=== PATIENT | female | born 1985 | race Caucasian/White ===

== ENCOUNTER 2017-10-24 07:30 | Outpatient (CLI) | payer SELFPAY ==
[2017-10-24 07:40] VITALS: BP 120/59
[2017-10-24] MEDS ORDERED: LR(*) 1000 ML BAG 1,000 ML IV PRN (08:20)
== END 2017-10-24 11:30 | disposition home or self-care (01) ==
LOC: OB 07:30 → L&D 07:30 → UNDOADMIN 07:30 → UNDODISIN 10:30 → L&D 11:30 → EDSTATUS 12:09
PROVIDERS: ATTEND Obstetrics & Gynecology
DX: O26.893 Other specified pregnancy related conditions, third trimester (principal); Z3A.30 30 weeks gestation of pregnancy
CPT/HCPCS: 81001; 99213; J7120

== ENCOUNTER 2017-12-04 14:43 | Outpatient (CLI) | payer MEDICAID ==
[~2017-12-04] VITALS: Ht 160 cm; Wt 76.7 kg
[2017-12-04 15:00] VITALS: BP 101/57; Ht 160 cm; Wt 76.7 kg
[2017-12-04] MEDS ORDERED: PREN-127 PO (16:02)
[2017-12-04] MEDS ORDERED: CALC-515 PO (16:02)
[2017-12-04] MEDS ORDERED: FAMO20TA28 PO (16:02)
[2017-12-04] MEDS ORDERED: TERBUTALINE SULF 1 MG/ML VIAL SC SCH (16:25)
[2017-12-04] MEDS ORDERED: LR(*) 1000 ML BAG 1,000 ML IV PRN (16:25)
[2017-12-04] MEDS ORDERED: NIFEdipine 10 MG CAP PO ONE (16:25)
[2017-12-04] MEDS ORDERED: TERBUTALINE SULF 1 MG/ML VIAL ONE (16:36)
[2017-12-04] MEDS ORDERED: BETAMETHASONE/ACETATE 6 MG/1ML IM SCH (17:00)
[2017-12-04] MEDS ORDERED: ACETAMINOPHEN 325 MG TAB PO PRN (17:10)
[2017-12-04] MEDS ORDERED: ACETAMINOPHEN 325 MG TAB ONE (17:21)
[2017-12-04 17:24] LABS: PLATELET COUNT, AUTOMATED 191 K/uL (150-450)
--- NOTE | 2017-12-04 18:25 | History & Physical ---
History of Present Illness Age of Patient: 32 : 3 Para or TPAL: 2 EDC per LMP: Jan 04, 2018 Estimated Gestational Age: 35.4 Chief Complaint Contractions History of Present Illness Presents with contractions. Was seen in office today and was 4 cm dilated. Pt went home and began to have regular painful contractions. No LOF or vaginal bleeding. Past Medical, Surgical, Family and Obstetric Histories reviewed. Please see ACOG chart. History Allergies: Uncoded Allergies: anethesia medications (Adverse Reaction, Unknown, 10/24/17) Med Rec Home Meds Reported Medications Calcium Carbonate (TUMS) 200 Mg Tab.chew, 200 MG PO, TAB.CHEW 12/04/17 Famotidine (PEPCID) 20 Mg Tablet, 20 MG PO BID, #10 TAB 12/04/17 Vits W-Ca,Fe,Fa(<1MG) ( VITAMINS) 1 Each Tablet, 1 EACH PO DAILY, TAB 12/04/17 Review of Systems All Systems Reviewed/Normal: Yes, Except as Noted Exam General Exam Vital Signs Vital Signs Date Time Temp Pulse Resp B/P (MAP) Pulse Ox O2 Delivery O2 Flow Rate FiO2 12/04/17 15:00 99.0 111 16 101/57 (72) 94 Room Air General Apperance: Alert/Awake/No Acute Distress Neuro: No Gross deficits Cardiovascular: Regular Rate and Rhythm Respiratory: No Respiratory Distress Abdomen: Soft, Non-Tender, Non-Distended, Gravid - Non-Tender Psychological: Alert & Oriented X3, Appropriate Mood & Affect Cervical Dialation: 4 Cervical Effacement (%): 80 Cervical Consistency: Soft Presentation: Vertex Fetus Heart Tone Variabilty: Moderate FHT Accelerations: 15X15 FHT Category: I Medical Decision Making Data Points Result Diagram: 12/04/17 3189 VTE Prophylasis: Adult Deep Vein Thrombosis/Pulmonary: No Pharmacological Contraindicati: Pt at Low Risk for VTE Mechanical Contraindications: Pt at Low Risk for VTE 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 Feeling much better and wants to go home. Betamethasone administered here. PTL precautions explained. She has appt on Sunday. Will get the second dose tomorrow. Problem Qualifiers (1) Threatened labor: Trimester: third trimester Qualified Codes: O47.03 - False labor before 37 completed weeks of gestation, third trimester MECHE DIAZ MD Dec 04, 2017 18:25
--- NOTE | 2017-12-04 18:26 | Short(Outpt) Discharge Summary ---
Discharge Summary Reason for Hosp/Final Diag: (1) Threatened labor Hospital Course & Plan: Received 1L IVFs bolus and terb + nifedipine 20 mg and contractions have stopped. Feeling much better and wants to go home. Betamethasone administered here. PTL precautions explained. She has appt on Sunday. Will get the second dose tomorrow. Departure Discharge to: Home, Self Care Discharge Instructions Home Meds Reported Medications Calcium Carbonate (TUMS) 200 Mg Tab.chew, 200 MG PO, TAB.CHEW 12/04/17 Famotidine (PEPCID) 20 Mg Tablet, 20 MG PO BID, #10 TAB 12/04/17 Vits W-Ca,Fe,Fa(<1MG) ( VITAMINS) 1 Each Tablet, 1 EACH PO DAILY, TAB 12/04/17 Follow up Referrals: SEAMAN OFFICER @ [facility] with MECHE DIAZ MD RETURN TO REGULARLY SCHEDULED APPOINTMENT. Diet: Regular Activity: As Tolerated Special Instructions: Complete betamethsone tomorrow Copies to: MECHE DIAZ MD ; Problem Qualifiers (1) Threatened labor: Trimester: third trimester Qualified Codes: O47.03 - False labor before 37 completed weeks of gestation, third trimester MECHE DIAZ MD Dec 04, 2017 18:26
[2017-12-04] MEDS ORDERED: NIF10 PO (18:40)
[2017-12-04] MEDS ORDERED: NIFEdipine 10 MG CAP PO SCH (21:00)
[2017-12-05] MEDS ORDERED: TERBUTALINE SULF 1 MG/ML VIAL SC SCH (16:25)
== END 2017-12-04 18:56 | disposition home or self-care (01) ==
LOC: OB 14:43 → L&D 14:43 → OB 14:43 → UNDOADMIN 14:43 → L&D 18:56 → UNDODISIN 18:56 → EDSTATUS 12-05 15:46
PROVIDERS: ATTEND Obstetrics & Gynecology
DX: O47.03 False labor before 37 completed weeks of gestation, third trimester (principal); Z3A.35 35 weeks gestation of pregnancy
CPT/HCPCS: 36415; 59025; 80305; 81001; 84112; 85025; 86703; G0463; J0702; J3105; J7120; 99213

== ENCOUNTER 2017-12-19 19:47 | Outpatient (CLI) | payer MEDICAID ==
[~2017-12-19] VITALS: Ht 165.1 cm; Wt 74.8 kg
[~2017-12-19 19:47] MED LIST: CALC-515 PO; FAMO20TA28 PO; NIF10 PO; PREN-127 PO
[2017-12-19] MEDS ORDERED: LR(*) 1000 ML BAG 1,000 ML IV PRN (19:49)
[2017-12-19] MEDS ORDERED: ACETAMINOPHEN 500 MG TAB PO ONE (20:50)
[2017-12-19 21:50] VITALS: BP 115/68; Ht 165.1 cm; Wt 74.8 kg
== END 2017-12-19 22:02 | disposition home or self-care (01) ==
LOC: OB 19:47 → UNDOADMOB 19:47 → OB 19:47 → L&D 19:47 → UNDODISOB 21:33 → L&D 22:02 → EDSTATUS 12-21 11:04
PROVIDERS: ATTEND Student in an Organized Health Care Education/Training Program
DX: O26.893 Other specified pregnancy related conditions, third trimester (principal); Z3A.37 37 weeks gestation of pregnancy
CPT/HCPCS: 59025; 81001; G0463; 99213; G0378; G0379

== ENCOUNTER 2017-12-28 05:15 | Inpatient (IN) | payer MEDICAID ==
[~2017-12-28] VITALS: Ht 162.6 cm; Wt 74.8 kg
[2017-12-28] VITALS (7 sets, daily range): BP systolic 113–130; BP diastolic 60–77; Ht 162.6 cm; Wt 74.8 kg
[2017-12-28] MEDS ORDERED: fentaNYL CITR 100 MCG/2 ML AMP IVP PRN (05:30)
[2017-12-28] MEDS ORDERED: OXYTOCIN 30 UNIT/D5LR 500 ML 500 ML IV PRN ×2 (05:30)
[2017-12-28] MEDS ORDERED: LIDOCAINE 1% LOCAL 300 MG/30ML INJ PRN (05:30)
[2017-12-28] MEDS ORDERED: LR(*) 1000 ML BAG 1,000 ML IV PRN (05:30)
[2017-12-28] MEDS ORDERED: FAMOTIDINE(*) 20MG/50ML PREMIX 50 ML IVPB PRN ×2 (05:30→15:41)
[2017-12-28] MEDS ORDERED: TERBUTALINE SULF 1 MG/ML VIAL SUBQ PRN (05:30)
[2017-12-28] MEDS ORDERED: METOCLOPRAMIDE 10 MG/2 ML SDV IVP PRN ×3 (05:30→15:50)
[2017-12-28] MEDS ORDERED: FLUSH 10 ML SYR IVP PRN (05:30)
[2017-12-28] MEDS ORDERED: LIDOCAINE/SOD BICARB 8.4% SYR SC PRN (05:30)
[2017-12-28] MEDS ORDERED: DLR(*) 1000 ML BAG 1,000 ML IV SCH (05:30)
[2017-12-28] MEDS ORDERED: cefOXitin/DEX(*) 2GM/50ML PREM 50 ML IVPB PRN (05:30)
[2017-12-28] MEDS ORDERED: ACET-1966 PO (05:56)
[2017-12-28 06:15] LABS: PLATELET COUNT, AUTOMATED 221 K/uL (150-450)
[2017-12-28] MEDS ORDERED: LIDOCAINE/PF 2% 200MG/10ML AMP 200 MG/10 ML AMPUL EPI PRN (08:00)
[2017-12-28] MEDS ORDERED: fentaNYL CITR 100 MCG/2 ML AMP IT PRN (08:00)
[2017-12-28] MEDS ORDERED: BUPIVACAINE 0.5% INJ 30ML VIAL EPI PRN (08:00)
[2017-12-28] MEDS ORDERED: EPIDURAL KEYS XX PRN (08:00)
[2017-12-28] MEDS ORDERED: BUPIVACAINE 0.25% MPF INJ EPI PRN (08:00)
[2017-12-28] MEDS ORDERED: LIDO/EPI 2% MPF 1:200,000 20ML EPI PRN (08:00)
[2017-12-28] MEDS ORDERED: FENTANYL/ROPIVACAINE 100 ML BAG EPI PRN (08:00)
[2017-12-28] MEDS ORDERED: ONDANSETRON 4 MG/2 ML VIAL IVP PRN (10:35)
[2017-12-28] MEDS ORDERED: ONDANSETRON 4 MG/2 ML VIAL ONE ×2 (10:38→18:26)
--- NOTE | 2017-12-28 10:49 | Anesthesia OB Pre-Anes Eval ---
History of Present Illness Anesthesia Start Date: Dec 28, 2017 Anesthesia Start Time: 08:40 OB Anesthesia Diagnosis: induction - elective Complications: None known EDC: Jan 04, 2018 : 3 Para: 2 Vital Signs: Vital Signs Date Time Temp Pulse Resp B/P (MAP) Pulse Ox O2 Delivery O2 Flow Rate FiO2 12/28/17 05:58 98.0 103 20 114/77 (89) Pain Ratin Heart Tones: WNL Result Diagram: 12/28/17 0608 Height (Inches): 64.00 Weight (Pounds): 165 BMI Calculated: 28.32 Past Medical History Medical History: other (Pt. states her "heart stopped during surgery") Surgical History: cholecystectomy Previous Anesthesia: general, epidural Attended Childbirth Classes?: No Hx Anesthesia Reactions: No Hx Family Anesthesia Reaction: No Current Medications: pitocin Home Meds Active Scripts Nifedipine (NIFEDIPINE) 10 Mg Cap, 20 MG PO Q6H PRN for CONTRACTIONS, #30 CAP 1 Refill Prov:MECHE DIAZ MD 12/04/17 Reported Medications Acetaminophen (TYLENOL) 325 Mg Tablet, 325 MG PO, TAB 12/28/17 Calcium Carbonate (TUMS) 200 Mg Tab.chew, 200 MG PO, TAB.CHEW 12/04/17 Famotidine (PEPCID) 20 Mg Tablet, 20 MG PO BID, #10 TAB 12/04/17 Vits W-Ca,Fe,Fa(<1MG) ( VITAMINS) 1 Each Tablet, 1 EACH PO DAILY, TAB 12/04/17 Allergies: Uncoded Allergies: anethesia medications (Adverse Reaction, Severe, 12/28/17) Pt states that she "flat lined and " during general anesthesia. Anesthesia OB ROS Neurological: No migraines/headaches, No seizures, No neuropathy ENT: Denies Tooth caps, Denies Loose teeth, Denies Chipped teeth, Denies Dentures, Denies Bridges, Denies Retainers, Denies Veneers, Denies Implants, Denies Tongue ring Pulmonary: smoker (pks/day/yrs) (admitts to 1 ppd (for 12 yrs)) Airway Class: ll Cardiovascular ROS: No edema, No arrhythmia GI ROS: clear liquids Last Solids Date: Dec 27, 2017 Last Solids Time: 20:00 ROS: No Herpes, No STD(s), No Liver Disease, No Renal Disease Endocrine ROS: No diabetes, No gestational diabetes, No thyroid disorder Musculoskeletal ROS: No low back pain, No low back injury, No scoliosis; other (HS of difficulty with placement of epidural and had blood patch after last LEB) ASA Classification: 2, 3 Assessment and Plan Anesthesia Plan: CSE Assessment Due to pt's history of difficulty with epidural placement, PDPHA and blood patch, pt is agreeable to early placement of epidural. Plan: for AROM after placement. General anesthesia risks and benefits explained to patient's satisfaction.Epidural anesthesia risks, complications and benefits explained to patient's satisfaction for labor and vaginal delivery and/or section. Questions invited, none asked. NILDA HARRELL CRNA Dec 28, 2017 10:49
--- NOTE | 2017-12-28 11:00 | Procedure Note ---
Anesthetic Placement Note Anesthesia Plan: CSE Permit for Anesthesia Signed: Yes Anesthesia Technique: Patient Sitting Anesthesia Prep: Chlorhexidine Interspace: L 3-4 Local Anesthetic: 1% Lidocaine, 25 Gauge Needle Amount Local - cc's: 2 Anesthesia Needle: 17g Touhy/Schliff Anesthesia Attempts: 1 Loss of Resistance: Air Depth of ADRIAN (cm): 5 Epidural Needle Placement: No CSF, No Blood, No Parasthesia Intrathecal Needle: 27 Gauge Pencan Cerebral Spinal Fluid: Yes, Clear Catheter Insertion (cm): 8 Catheter Type: Ryan - Spring Wound Epidural Dressing: Tegaderm, Tape, Adhesive Gibbon Anesthesia Tray: Lot Number ([id number]), Expiration Date (2018-12-02), Reference Number ([id number]) Anesthesia Medications: Intrathecal Dose: mcg Fentanyl (10), mg Marcaine MPF (1.75), Time (906) Epidural Test Dose: 1.5 Lido/Epi (1:200,000), Dose - mL (2), Time (925), Negative Epidural Loading Dose: 0.2% Ropivicaine, With Fentanyl 2mcg/ml, Dose - ml (4), Time (927) Epidural Infusion: 0.2% Ropivicaine, With Fentanyl 2mcg/ml, Start Time: (927) Epidural Pump Setting: Bolus Dose - mL (4), Lockout - Minutes (20), Maintenance Rate - mL/hr (4), Maximum per Hour - mL (16) Complications: None Comment: Accura ultra sound used with placement. No problems noted with placement of CSE. Pt. tolerated procedure very well. No signs of any dura puncture. NILDA HARRELL CRNA Dec 28, 2017 11:00
--- NOTE | 2017-12-28 11:06 | Anesthesia Progress Note ---
Progress/Maintenance Anesthesia Note Date: Dec 28, 2017 Anesthesia Note Time: 11:00 Pain Intensity: 4 Pump: On Pump Rate (ML/HR): 4 Sensory Level: T-12 Motor Level: Bending Knees-Bilateral Dilatation: 6 Position: Right, Tilt Assessment and Plan Assessment Pt. states that her legs are heavy, is moving both. Rates her contractions as "4". Unable to notice any facial or physical movements with contractions. NILDA HARRELL CRNA Dec 28, 2017 11:06
--- NOTE | 2017-12-28 12:40 | Anesthesia Progress Note ---
Progress/Maintenance Anesthesia Note Date: Dec 28, 2017 Anesthesia Note Time: 12:30 Pain Intensity: 4 Pump: On Pump Rate (ML/HR): 4 Sensory Level: T-12 Motor Level: Bending Knees-Bilateral, Other (Both legs heavy, but can move them) Dilatation: 8 Position: Right, Tilt Drug Bolus: 0.5% Marcaine (4ml), Other (Fentenyl 85 mcgs) Assessment and Plan Assessment Called by RN that Pt. is requesting medication for "pressure". AROM and dilated to 8 cms. Bolus per pump and Fentenyl given. Improvement noted within 5-8 minutes, but pt. remains very restless and continues to feel "pressure". Manual bolus of 4 ml 0.5% Marcaine plain. Encouraged to relax. NILDA HARRELL CRNA Dec 28, 2017 12:40
[2017-12-28] MEDS ORDERED: METHYLERGONOVINE MAL 0.2MG/ML ONE (13:29)
[2017-12-28] MEDS ORDERED: CARBOPROST TROMETHAM 250MCG/ML IM ONLY ONE (13:29)
--- NOTE | 2017-12-28 13:57 | Anesthesia Progress Note ---
Progress/Maintenance Anesthesia Note Date: Dec 28, 2017 Anesthesia Note Time: 13:45 Pain Intensity: 4 Pump: On Pump Rate (ML/HR): 4 Sensory Level: T-12 Motor Level: Bending Knees-Bilateral, Other (both legs heavy but can move) Dilatation: 9 Position: Right, Tilt Drug Bolus: 0.2% Ropivicaine, 0.5% Marcaine (4 ml), Fentanyl 2mcg/ml Assessment and Plan Assessment bolus per pump given as well as 4 ml 0.5% Marcaine plain. Pt. verbal with feeling of "pressure". Pt. slow to verbally respond when questioned about comfort level. NILDA HRARELL CRNA Dec 28, 2017 13:57
--- NOTE | 2017-12-28 14:17 | Anesthesia Progress Note ---
Progress/Maintenance Anesthesia Note Date: Dec 28, 2017 Anesthesia Note Time: 14:15 Pain Intensity: 4 Pump: On Pump Rate (ML/HR): 4 Sensory Level: T-10 Motor Level: Other (assistance required to move both legs) Dilatation: 9 Position: Left, Tilt Drug Bolus: Other (Fentenyl 50 mcgs) Assessment and Plan Assessment Pt. continues to be very vocal with first 5 seconds of a contraction. States she feels "pressure and want to push". NILDA HARRELL CRNA Dec 28, 2017 14:17
[2017-12-28] MEDS ORDERED: ACETAMINOPHEN 325 MG TAB PO PRN (15:25)
[2017-12-28] MEDS ORDERED: GLYCERIN/WITCH HAZEL LEAF 1 PK TP PRN (15:25)
[2017-12-28] MEDS ORDERED: APAP/HYDROCODONE 325/5 TAB PO PRN (15:25)
[2017-12-28] MEDS ORDERED: LANOLIN OINT 7 GM TUBE TP PRN (15:25)
[2017-12-28] MEDS ORDERED: HYDROCORTISONE 2.5% CR 30GM TB PR PRN (15:25)
[2017-12-28] MEDS ORDERED: MAGNESIUM HYDROXIDE* 30ML UDCP PO PRN (15:25)
--- NOTE | 2017-12-28 15:34 | OB Delivery Note ---
Delivery Note Vaginal Delivery Type: Spont. Vaginal Delivery Delivery Date: Dec 28, 2017 Delivery Time: 15:29 Estimated Gestational Age(wks): 39 Delivery Anesthesia: Epidural Sex: Male [place] Apgars: 1 Minute (8), 5 Minute (8) Baby B Weight (gms): 3592 Repair Needed: Vaginal, 1st Degree Estimated Blood Loss: 200 Notes: Admitted for labor induction at 4 cm dilation and 39 weeks. Pitocin induction and progressed regularly to 7 cm by 1130. Issues with tachysystole for a period and eventually progressed to 9 cm by 1252. Completely dilated at 1446. Pushing effectively in MYRIAM position, baby delivered over first degree laceration. Shoulders delivered with gentle manipulation downward while a push effected delivery of the baby. No complications. Repair with 2-0 Chromic without complication. Log Check Scaler in Attendence: No Copies to: MECHE DIAZ MD ; MECHE DIAZ MD Dec 28, 2017 15:34
[2017-12-28] MEDS ORDERED: NORMOSOL R SOLN(*) 1000 ML BAG 1,000 ML IV PRN (15:45)
--- NOTE | 2017-12-28 16:04 | Anesthesia Progress Note ---
Progress/Maintenance Anesthesia Note Date: Dec 28, 2017 Anesthesia Note Time: 15:20 Pain Intensity: 0 Pump: Off Sensory Level: T-10 Motor Level: Other (Both legs heavy) Dilatation: 10 Position: Semi-Fowlers Assessment and Plan Assessment No further medications were given. Although pt. continued to be very verbal, she was able to push, had excellent tolerance of delivery and 1st degree repair. Epidural pump off and empty syringe attached to epidural catheter. Patient instructed the first ambulation is to be with help of nursing staff. Instructed to preform deep knee bends at bedside before walking. 1ml Fentenyl remains and will pass along to Dr. Ng for PPTL Anesthesia Stop Day: Dec 28, 2017 Anesthesia Stop Time: 15:20 NILDA HARRELL CRNA Dec 28, 2017 16:04
[2017-12-28] MEDS: BENZOCAINE 20% 60 ML BTL TP PRN (16:25)
[2017-12-28] MEDS ORDERED: LIDO/EPI 2% MPF 1:200,000 20ML ONE ×2 (16:37→17:22)
[2017-12-28] MEDS: IBUPROFEN 800 MG TAB PO SCH (16:44)
[2017-12-28] MEDS ORDERED: fentaNYL CITR 100 MCG/2 ML AMP ONE ×2 (17:07→18:55)
[2017-12-28] MEDS ORDERED: MIDAZOLAM 2 MG/2 ML VIAL ONE (17:08)
[2017-12-28] MEDS ORDERED: ROPIVACAINE 0.2% 20 ML VIAL ONE (17:16)
--- NOTE | 2017-12-28 17:27 | Anesthesia Progress Note ---
Progress/Maintenance Anesthesia Note Date: Dec 28, 2017 Anesthesia Note Time: 16:55 Pain Intensity: 0 Pump: Off Anesthesia Treatment: Epidural dosed with 2% Lidocaine 15ml total in 5ml increments and Fentanyl Report Received From: Rashmi Payton CRNA Care Assumed By: Other (Devin Pete CRNA) Time Care Assumed: 16:30 Assessment and Plan Assessment: Epidural dosed for upcoming Tubal Ligation down in main OR. 1715 pt reports approximately T-8 sensory level Anesthesia Stop Day: Dec 28, 2017 Anesthesia Stop Time: 17:25 Epidural Catheter Removal: Removed by: (Catheter will be removed in OR following tubal ligation.) SABA PETE CRNA Dec 28, 2017 17:27
[2017-12-28] MEDS ORDERED: SUGAMMADEX SOD 500 MG/5 ML SDV ONE (18:25)
--- NOTE | 2017-12-28 18:42 | Post Operative Note ---
Operative Note - SIGN HANGER Operative Day Date: Dec 28, 2017 Time: 18:41 Physicians Surgeon: Rocio Anesthesia: GETA Diagnosis Pre-Op Diagnosis: sterilization Post-Op Diagnosis: same Procedure Procedure(s): PPTL Complications: none Fluids Fluids: iv crystalloid Estimated Blood Loss: minmal Dictated Date OP Note Dictated: Dec 28, 2017 Time OP Note Dictated: 18:41 Copies to: MECHE DIAZ MD ; MECHE DIAZ MD Dec 28, 2017 18:42
--- NOTE | 2017-12-28 20:02 | OPERATIVE REPORT 1 ---
EVENT DATE: December 28, 2017 SURGEON: Damien Chan MD ANESTHESIOLOGIST: Marciano Ng MD ANESTHESIA: General and regional. PREOPERATIVE DIAGNOSES 1. status post vaginal delivery. 2. Desired sterilization. POSTOPERATIVE DIAGNOSES 1. status post vaginal delivery. 2. Desired sterilization. PROCEDURE PERFORMED tubal sterilization via modified [place] method. ESTIMATED BLOOD LOSS Minimal. FLUIDS IV crystalloid. PROCEDURE IN DETAIL The patient was brought to the operating room with an epidural in place, working IV, and administered surgical doses. She was then prepped and draped in the usual sterile fashion. The umbilicus was infiltrated with 0.2% Naropin. A curvilinear incision beneath the umbilicus was made with a scalpel and carried through to the intra-abdominal space through the peritoneum. The patient was excessively uncomfortable through this portion of the procedure; therefore, the procedure was put on pause while Dr. Ng placed her under general endotracheal anesthesia. Once this was secured, we proceeded again with the case by rolling the patient to the right, packing away bowel and omentum with a moist laparotomy sponge, manipulating the uterus to bring the right tube into view. The isthmic portion of the tube was grasped and elevated while a knuckle of tube was created with a plain gut tie. It was doubly ligated, and then a 2 cm segment of tube was excised. The same procedure was followed on the contralateral side in a likewise fashion following the tube to the fimbriated end, verifying the tube, grasping it in the isthmic portion, and excising a 2 cm segment of tube. This was sent to Pathology. All sites were hemostatic; therefore, the incision was repaired with an 0 Vicryl through the fascia and peritoneum in a running nonlocking stitch. The subcuticular space was closed with a 3-0 Vicryl, and the skin incision was repaired with 4-0 Monocryl simple subdermal and covered with Dermabond skin adhesive. She tolerated the procedure well. Sponge, lap, needle, and instrument counts were all correct times three. [facility]
[2017-12-28] MEDS: DOCUSATE CALCIUM 240 MG CAP PO SCH (21:08)
[2017-12-28] MEDS: NICOTINE 14 MG/24 HR PATCH TD SCH (22:42)
[2017-12-28] MEDS ORDERED: BENZONATATE 100 MG CAP PO PRN (23:55)
[2017-12-29] MEDS: IBUPROFEN 800 MG TAB PO SCH ×3 (01:20→16:25)
[2017-12-29 04:55] VITALS: BP 112/66
[2017-12-29 08:19] VITALS: BP 101/62
[2017-12-29] MEDS: APAP/HYDROCODONE 325/7.5 TAB PO PRN ×2 (08:22→11:51)
[2017-12-29] MEDS ORDERED: DIPHTH/TETANUS/ACEL. PERTUSSIS IM ONLY ONE (09:00)
[2017-12-29] MEDS ORDERED: MEASLES,MUMP,RUBELLA VAC 0.5ML SUBQ ONE (09:00)
[2017-12-29] MEDS: NICOTINE 14 MG/24 HR PATCH TD SCH (09:00)
[2017-12-29] MEDS ORDERED: INFLUENZA VIRUS VAC 0.5ML SYR IM ONLY ONE (09:00)
[2017-12-29] MEDS: DOCUSATE CALCIUM 240 MG CAP PO SCH (09:27)
--- NOTE | 2017-12-29 12:28 | OB/GYN Progress Note ---
OB Subjective Progress Notes Subjective Doing well. Some shoulder pain at times and incisional pain but tolerable. Tolerating pain medication well. Ambulating and voiding well. GI: NEG Nausea : Voiding Well Pain: Mild OB Objective Physical Exam Vital Signs Date Time Temp Pulse Resp B/P (MAP) Pulse Ox O2 Delivery O2 Flow Rate FiO2 12/29/17 08:19 97.8 70 18 101/62 (75) 94 Room Air 12/29/17 01:40 1.0 Intake and Output 12/29/17 07:00 Intake Total 2590 ml Output Total 850 ml Balance 1740 ml Intake Oral 240 ml IV Total 2350 ml Output Urine Total 850 ml General Appearance: Alert/Awake/No Acute Distress Neurological: No Gross deficits Cardiovascular: Normal Rhythm & Peripheral Pulses Respiratory: No Respiratory Distress Abdomen: Soft, Non-Tender, Non-Distended Incision: Clean, Dry, Intact, Dermabond Integumentary: Skin Intact without Lesions or Rash Psychological: Alert & Oriented X3, Appropriate Mood & Affect Result Diagram: 12/29/17 0722 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 Home today. F/u at 2 weeks for incision check. (2) care and examination immediately after delivery Assessment & Plan: f/u at 6 weeks. MECHE DIAZ MD Dec 29, 2017 12:28
[2017-12-29] MEDS ORDERED: IBUP800T37 PO (12:30)
[2017-12-29] MEDS ORDERED: Acetaminophen/Hydrocodone PO (12:30)
--- NOTE | 2017-12-29 12:32 | OB/GYN Discharge Summary ---
Discharge Summary Reason for Hosp/Final Diag: (1) Postoperative state Hospital Course & Plan: Stable and doing well. Home today. F/u at 2 weeks for incision check. (2) care and examination immediately after delivery Hospital Course & Plan: f/u at 6 weeks. [place] Vital Signs Vital Signs Date Time Temp Pulse Resp B/P (MAP) Pulse Ox O2 Delivery O2 Flow Rate FiO2 12/29/17 08:19 97.8 70 18 101/62 (75) 94 Room Air 12/29/17 01:40 1.0 Weight (Pounds): 165 Result Diagram: 12/29/17 0722 Condition: Improved Discharge: Home, Self Correction Meds Active Scripts [Apap/Hydrocodone 325/7.5 Tab] 7.5 MG/325 MG TAB No Conflict Check, 1-2 EACH PO Q4-6H PRN for PAIN, #20 TAB 0 Refills Prov:MECHE CHAN MD 12/29/17 Nifedipine (NIFEDIPINE) 10 Mg Cap, 20 MG PO Q6H PRN for CONTRACTIONS, #30 CAP 1 Refill Prov:MECHE CHAN MD 12/04/17 Reported Medications Acetaminophen (TYLENOL) 325 Mg Tablet, 325 MG PO, TAB 12/28/17 Calcium Carbonate (TUMS) 200 Mg Tab.chew, 200 MG PO, TAB.CHEW 12/04/17 Famotidine (PEPCID) 20 Mg Tablet, 20 MG PO BID, #10 TAB 12/04/17 Vits W-Ca,Fe,Fa(<1MG) ( VITAMINS) 1 Each Tablet, 1 EACH PO DAILY, TAB 12/04/17 Follow up Referrals: BIOMECHANICAL ENGINEER - In Two Weeks @ [facility] with MECHE CHAN MD Follow up with: Dr. Chan [phone] Follow up in: 6 wks PP or PO Discharge Diet: As Tolerates Discharge Activity: As Tolerates, No Heavy Lifting x 6 wks, No Heavy Lifting > 10lb, Pelvic Rest Copies to: MECHE CHAN MD ; MECHE CHAN MD Dec 29, 2017 12:32
[2017-12-29 12:40] VITALS: BP 96/53
--- NOTE | 2017-12-29 14:29 | Anesthesia Post Eval Note ---
Anesthesia Post Eval Note Stabil, afebrile. Pt able to participate in Eval: Yes Cardiovascular Status: Satisfactory Respiratory Status: Satisfactory Pain Managment: Satisfactory PO Nausea/Vomiting: Satisfactory Temperature Management: Satisfactory Mental Status: Satisfactory, Alert, Oriented X3 Post-Op Hydration Status: Satisfactory, Tolerating PO Well, Voiding w/o Difficulty Anesthesia Type: CSE Anesthesia Tolerance: Ambulatory without symptoms of PDPH. Labor epidural was dosed for surgery following uneventful vaginal delivery. Pt. transported down to main OR by surgical staff. She reports that she still had sensation in abdomen and anesthesia provider had to do GETA to finish the procedure (PPBTL) despite inability to move lower extremities before departing for OR. Refer to surgical anesthesia record for further details. SABA PETE CRNA Dec 29, 2017 14:28
[2017-12-29] MEDS: BENZOCAINE 20% 60 ML BTL TP PRN (16:35)
== END 2017-12-29 16:46 | disposition home or self-care (01) | DRG 798 ==
LOC: OB 05:15
PROVIDERS: ADMIT Obstetrics & Gynecology; ATTEND Obstetrics & Gynecology
PROC: 0UB70ZZ Excision of Bilateral Fallopian Tubes, Open Approach (ICD-10-PCS; 2017-12-28)
PROC: 0HQ9XZZ Repair Perineum Skin, External Approach (ICD-10-PCS; 2017-12-28)
PROC: 3E033VJ Introduction of Other Hormone into Peripheral Vein, Percutaneous Approach (ICD-10-PCS; 2017-12-28)
PROC: 10E0XZZ Delivery of Products of Conception, External Approach (ICD-10-PCS; principal; 2017-12-28 17:45)
DX: O62.8 Other abnormalities of forces of labor (principal); Z37.0 Single live birth; O70.0 First degree perineal laceration during delivery; Z3A.39 39 weeks gestation of pregnancy; Z90.49 Acquired absence of other specified parts of digestive tract
CPT/HCPCS: 36415; 85025; 85027; 86850; 86900; 86901; 88302; J2250; J2405; J2590; J2765; J2795; J3010; J3490; J7120; S0020